=== PATIENT | male | born 1990 | race African-American/Black ===

== ENCOUNTER 2018-10-30 12:42 | Emergency (ER) | payer OTHER, MEDICAID ==
[2018-10-30 12:52] VITALS: BP 128/86
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
== END 2018-10-30 13:21 | disposition home or self-care (01) ==
DX: S16.1XXA Strain of muscle, fascia and tendon at neck level, initial encounter (principal); S00.81XA Abrasion of other part of head, initial encounter; V49.49XA Driver injured in collision with other motor vehicles in traffic accident, initial encounter; Y92.410 Unspecified street and highway as the place of occurrence of the external cause